=== PATIENT | female | born 1945 | race Caucasian/White ===

== ENCOUNTER 2018-10-24 06:59 | Emergency (ER) | payer MEDICARE, MEDICAID ==
[~2018-10-24] VITALS: Ht 162.6 cm; Wt 75.0 kg
[2018-10-24] MEDS ORDERED: ONDANSETRON 2MG/ML, 2ML ONE (07:22)
[2018-10-24] MEDS ORDERED: MORPHINE SULFATE 4 MG/ML, 1ML ONE (07:22)
[2018-10-24] MEDS ORDERED: MORPHINE SULFATE 4 MG/ML, 1ML IVPush PRN (07:30)
[2018-10-24] MEDS ORDERED: SODIUM CHLORIDE 0.9% 1,000ML IVBOLUS ONE (07:30)
[2018-10-24] MEDS ORDERED: ONDANSETRON 2MG/ML, 2ML IVPush ONE (07:30)
[2018-10-24 07:45] LABS: BASOPHILS # (AUTO) 0.03 x10^3/uL (0-0.1); BASOPHILS % (AUTO) 0 % (0-1); EOSINOPHILS # (AUTO) 0.17 x10^3/uL (0-0.4); EOSINOPHILS % (AUTO) 2 % (1-7); LYMPHOCYTES # (AUTO) 1.07 x10^3/uL (1-3.4); LYMPHOCYTES % (AUTO) 9 % (22-44); MD NO; MEAN CORPUSCULAR HEMOGLOBIN 30.2 pg (27.0-34.8); MEAN CORPUSCULAR HGB CONC 33.2 g/dL (32.4-35.8); MEAN PLATELET VOLUME 8.5 fL (7.4-10.4); MONOCYTES # (AUTO) 0.49 x10^3/uL (0.2-0.8); MONOCYTES % (AUTO) 4 % (2-9); NEUTROPHILS % (AUTO) 85 % (42-75); PLATELET COUNT 257 x10^3/uL (130-400); RED BLOOD COUNT 4.76 x10^6/uL (3.82-5.3); RED CELL DISTRIBUTION WIDTH 13.4 % (9.6-15.2)
[2018-10-24 07:50] LABS: ALANINE AMINOTRANSFERASE 38 U/L (12-78); ALBUMIN 4.2 g/dL (3.4-5.0); ANION GAP 6 mmol/L (5-15); CALCIUM 10.5 mg/dL (8.5-10.1); CHLORIDE 111 mmol/L (98-107); CREATININE 1.03 mg/dL (0.55-1.02); INTERNATIONAL NORMALIZED RATIO 1.07 (0.93-1.1); PROTHROMBIN TIME 11.2 Seconds (9.6-11.5)
[2018-10-24 07:52] LABS: ALKALINE PHOSPHATASE 102 U/L (45-117); BILIRUBIN,TOTAL 0.7 mg/dL (0.2-1.0); TOTAL PROTEIN 7.9 g/dL (6.4-8.2)
--- NOTE | 2018-10-24 08:17 | NUR ---
CT WAITING FOR LAB RESULTS-CALLED LAB
[2018-10-24 09:47] LABS: CULTURE INDICATED? YES; MICROSCOPIC INDICATED
[2018-10-24] MEDS ORDERED: CEFTRIAXONE PMX 1GM/50ML 50 ML ONE (10:22)
[2018-10-24] MEDS ORDERED: CEFTRIAXONE PMX 1GM/50ML 50 ML IV ONE (10:30)
--- NOTE | 2018-10-24 11:04 | NUR ---
THROUGHPUT RN [id number] Called patient's residence ([facility]) to arrange transport back to facility, they reportedly do not have available transportation services today 1057 Per patient, it is OK to contact her daughter Yudith to pick her up and transport her home but the number we have listed is no longer in service. 1100 per patient it is OK to transport her home in taxi with a voucher, called and spoke with [employer] at [facility] - they are on board with this plan, we will call when the patient is heading home.
[2018-10-24 11:54] VITALS: BP 138/75
--- NOTE | 2018-10-24 12:03 | NUR ---
CALLED [facility]. DISCUSSED WITH EMANUEL THAT PT IS ON THEIR WAY BACK VIA [place]. THEY WILL BE WAITING TO ASSIST HER
== END 2018-10-24 12:05 | disposition home or self-care (01) ==
LOC: ED 07:35
DX: N30.00 Acute cystitis without hematuria (principal); R10.84 Generalized abdominal pain; R19.7 Diarrhea, unspecified; E86.0 Dehydration; R11.2 Nausea with vomiting, unspecified; Z90.710 Acquired absence of both cervix and uterus
CPT/HCPCS: 36415; 74177; 80053; 81001; 83690; 85025; 85610; 85730; 87077; 87086; 96361; 96365; 96375; 99284; J0696; J2405; J7030; 87186